=== PATIENT | female | born 1975 | race African-American/Black ===

== ENCOUNTER 2022-11-05 16:32 | Emergency (ER) | payer OTHER ==
[~2022-11-05] VITALS: Ht 170.2 cm; Wt 87.0 kg
[2022-11-05 16:36] VITALS: O2SAT 100
[2022-11-05 17:45] VITALS: BP 132/78
[2022-11-05] MEDS ORDERED: ACETAMINOPHEN 325MG TABLET PO ONE (17:45)
[2022-11-05] MEDS ORDERED: IBUPROFEN 800MG TABLET PO ONE (17:45)
[2022-11-05] MEDS: IBUPROFEN 400MG TABLET PO NR ×2 (17:45→19:20)
[2022-11-05] MEDS ORDERED: TOPUD MT (19:44)
[2022-11-05] MEDS ORDERED: IBUP-1525 MT (19:44)
[2022-11-05 20:00] VITALS: PULSE 95; RESP 18; TEMP 98.6
== END 2022-11-05 20:05 | disposition home or self-care (01) ==
LOC: ER 17:35
DX: S40.011A Contusion of right shoulder, initial encounter (principal); R07.81 Pleurodynia; V43.52XA Car driver injured in collision with other type car in traffic accident, initial encounter; Y93.89 Activity, other specified; Y92.89 Other specified places as the place of occurrence of the external cause; Y99.8 Other external cause status
CPT/HCPCS: 71045; 73030; 99284